=== PATIENT | male | born 1970 | race African-American/Black ===

== ENCOUNTER 2018-10-12 06:06 | Emergency (ER) | payer MEDICAID ==
[~2018-10-12] VITALS: Ht 177.8 cm; Wt 64.0 kg
[2018-10-12] MEDS ORDERED: SODIUM CHLORIDE 0.9% 1,000 ML IV ONE (08:27)
[2018-10-12 10:39] VITALS: BP 125/82
== END 2018-10-12 11:11 | disposition short-term general hospital (02) ==
LOC: ER 06:06
DX: S09.8XXA Other specified injuries of head, initial encounter (principal); G93.40 Encephalopathy, unspecified; S12.300A Unspecified displaced fracture of fourth cervical vertebra, initial encounter for closed fracture; S12.400A Unspecified displaced fracture of fifth cervical vertebra, initial encounter for closed fracture; S12.500A Unspecified displaced fracture of sixth cervical vertebra, initial encounter for closed fracture; F32.9 Major depressive disorder, single episode, unspecified; F20.9 Schizophrenia, unspecified; F17.200 Nicotine dependence, unspecified, uncomplicated; Y08.89XA Assault by other specified means, initial encounter; Y93.9 Activity, unspecified; Y92.9 Unspecified place or not applicable
CPT/HCPCS: 70450; 72125; 99291; J7030; L0172

== ENCOUNTER 2018-11-17 03:37 | Emergency (ER) | payer MEDICAID ==
[~2018-11-17] VITALS: Ht 170.2 cm; Wt 71.0 kg
[2018-11-17 10:05] LABS: CHLORIDE 105 mEq/L (98-107)
[2018-11-17 10:09] LABS: BASOPHILS % 0.8 % (0.0-2.0); ETHANOL BLOOD < 10 mg/dL; LYMPHOCYTES % 49.9 % (20.0-50.0); MEAN CORPUSCULAR HEMOGLOBIN 29.3 pg (28.0-32.0); MEAN CORPUSCULAR VOLUME 87.9 fL (80.0-94.0); MEAN PLATELET VOLUME 7.7 fl (7.4-10.4); MONOCYTES % 12.6 % (2.0-8.0); NEUTROPHILS % 36.7 % (40.0-76.0); PLATELET 272 x1000/uL (130-400); RED BLOOD CELL COUNT 5.12 mill/uL (4.7-6.1); RED CELL DISTRIBUTION WIDTH 12.9 % (11.6-14.6)
[2018-11-17 14:08] LABS: CLARITY URINE CLEAR (CLEAR); COLOR URINE DARK YELLOW (YELLOW); KETONES URINE TRACE (NEGATIVE); LEUKOCYTE ESTERASE URINE NEGATIVE (NEGATIVE); NITRITE URINE NEGATIVE (NEGATIVE); OCCULT BLOOD URINE NEGATIVE (NEGATIVE); PH URINE 5.5 (4.5-8.0); PROTEIN URINE TRACE (NEGATIVE); SPECIFIC GRAVITY URINE 1.039 (1.005-1.030)
[2018-11-17 14:30] LABS: *AMPHETAMINES SCREEN URINE NEGATIVE (NEGATIVE); *BARBITURATES SCREEN URINE NEGATIVE (NEGATIVE); *BENZODIAZEPINES SCREEN URINE NEGATIVE (NEGATIVE); *COCAINE SCREEN URINE PRESUMTIVE POSITIVE (NEGATIVE); METHADONE URINE SCREEN NEGATIVE (NEGATIVE); OPIATES URINE SCREEN NEGATIVE (NEGATIVE)
[2018-11-17 14:31] LABS: CANNABINOID URINE SCREEN PRESUMTIVE POSITIVE (NEGATIVE); PHENCYCLIDINE URINE SCREEN NEGATIVE (NEGATIVE)
[2018-11-17] MEDS ORDERED: LORAZEPAM 2MG/ML CPJ IM PRN (16:30)
[2018-11-17] MEDS ORDERED: HALOPERIDOL LACTATE 5MG/ML VIAL IM ONE (16:30)
[2018-11-19 13:00] VITALS: BP 117/66
== END 2018-11-19 15:49 | disposition left against medical advice (07) ==
LOC: ER 03:37
DX: R45.851 Suicidal ideations (principal); F14.10 Cocaine abuse, uncomplicated; F12.10 Cannabis abuse, uncomplicated; F25.9 Schizoaffective disorder, unspecified; M79.672 Pain in left foot; M79.671 Pain in right foot
CPT/HCPCS: 36415; 80053; 80305; 80307; 80320; 80329; 81003; 85025; 96372; 99285; J1630; J2060; Z7610; G0480

== ENCOUNTER 2022-09-22 20:12 | Emergency (ER) | payer MEDICAID, OTHER ==
[~2022-09-22] VITALS: Ht 172.7 cm; Wt 55.7 kg
[2022-09-23] MEDS ORDERED: LORAZEPAM 1MG TABLET PO ONE (00:15)
[2022-09-23 06:15] VITALS: BP 120/68
== END 2022-09-23 06:15 | disposition home or self-care (01) ==
LOC: ER 20:12
DX: R44.0 Auditory hallucinations (principal); T43.651A Poisoning by methamphetamines accidental (unintentional), initial encounter; Y92.9 Unspecified place or not applicable; F19.19 Other psychoactive substance abuse with unspecified psychoactive substance-induced disorder; Z71.51 Drug abuse counseling and surveillance of drug abuser
CPT/HCPCS: 99283